=== PATIENT | female | born 1965 | race Caucasian/White ===

== ENCOUNTER 2017-04-07 14:11 | Outpatient (CLI) | payer OTHER | END 2017-04-07 23:59 | disposition home or self-care (01) | LOC: RAD 14:11 | PROVIDERS: ATTEND Registered Nurse | DX: M19.072 Primary osteoarthritis, left ankle and foot (principal); M77.32 Calcaneal spur, left foot; M77.31 Calcaneal spur, right foot; M21.42 Flat foot [pes planus] (acquired), left foot; M21.41 Flat foot [pes planus] (acquired), right foot | CPT/HCPCS: 73630 ==

== ENCOUNTER 2017-04-19 10:31 | Outpatient (CLI) | payer OTHER ==
[2017-04-19 11:51] LABS: ALANINE AMINOTRANSFERASE 27 U/L (12-78); ALBUMIN 3.4 G/DL (3.4-5.0); ALBUMIN/GLOBULIN RATIO 0.9 (1.1-1.5); ALKALINE PHOSPHATASE 53 IU/L (46-116); ANION GAP 8 (8-16); ASPARTATE AMINO TRANSFERASE 17 U/L (10-37); BILIRUBIN,TOTAL 0.4 MG/DL (0.1-1.0); BLOOD UREA NITROGEN 15 MG/DL (7-18); BUN/CREATININE RATIO 20.5 (6.6-38.0); CALCIUM 8.7 MG/DL (8.5-10.1); CHLORIDE 103 MMOL/L (99-107); CREATININE 0.73 MG/DL (0.40-0.90); GLUCOSE 92 MG/DL (70-104); POTASSIUM 3.7 MMOL/L (3.5-5.1); SODIUM 139 MMOL/L (135-145); TOTAL CARBON DIOXIDE 27.8 MMOL/L (24-32); eGFR 85 ML/MIN
== END 2017-04-19 23:59 | disposition home or self-care (01) ==
LOC: LAB 10:31
PROVIDERS: ATTEND Physician Assistant
DX: E03.8 Other specified hypothyroidism (principal); E88.09 Other disorders of plasma-protein metabolism, not elsewhere classified
CPT/HCPCS: 36415; 80053; 84439; 84443; 84481

== ENCOUNTER 2017-10-20 10:40 | Outpatient (CLI) | payer OTHER | END 2017-10-20 23:59 | disposition home or self-care (01) | LOC: RAD 10:40 | PROVIDERS: ATTEND Podiatrist Foot & Ankle Surgery | DX: M21.41 Flat foot [pes planus] (acquired), right foot (principal); R60.0 Localized edema; M79.671 Pain in right foot; Z90.89 Acquired absence of other organs; Z87.891 Personal history of nicotine dependence; Z88.1 Allergy status to other antibiotic agents | CPT/HCPCS: 73718 ==

== ENCOUNTER 2017-10-27 08:20 | Emergency (ER) | payer OTHER ==
[~2017-10-27] VITALS: Ht 162.6 cm; Wt 105.8 kg
[2017-10-27 08:44] VITALS: BP 142/83
[2017-10-27] MEDS ORDERED: ondansetron 4mg rapidly disintigrating tab PO ONE (08:50)
[2017-10-27] MEDS ORDERED: ibuprofen tablet 400 MG TABLET PO ONE (08:50)
[2017-10-27] MEDS ORDERED: acetaminophen 325mg tablet PO ONE (08:50)
== END 2017-10-27 09:56 | disposition home or self-care (01) ==
LOC: ER 08:20
DX: H53.8 Other visual disturbances (principal); R51 Headache; G89.29 Other chronic pain; Z98.890 Other specified postprocedural states; Z90.89 Acquired absence of other organs; Z88.1 Allergy status to other antibiotic agents
CPT/HCPCS: 99284

== ENCOUNTER 2018-04-03 06:51 | Outpatient (CLI) | payer OTHER ==
[2018-04-03 07:31] LABS: BASOPHILS % (AUTO) 0.6 % (0-1); EOSINOPHILS # (AUTO) 0.3 X10'3 (0-0.9); HEMOGLOBIN 13.6 g/dl (12.0-16.0); LYMPHOCYTES # (AUTO) 2.5 X10'3 (1.1-4.8); LYMPHOCYTES % (AUTO) 38.3 % (21-51); MEAN CORPUSCULAR HEMOGLOBIN 30.9 PG (27.0-31.0); MEAN PLATELET VOLUME 7.4 FL (7.4-10.4); MONOCYTES # (AUTO) 0.7 X10'3 (0-0.9); MONOCYTES % (AUTO) 10.4 % (2-12); NEUTROPHILS # (AUTO) 3.1 X10'3 (1.8-7.7); NEUTROPHILS % (AUTO) 46.7 % (42-75); PLATELET COUNT 381 X10'3 (140-440); RED BLOOD COUNT 4.39 X10'6 (4.20-5.60); RED CELL DISTRIBUTION WIDTH 13.5 % (11.5-14.5); WHITE BLOOD COUNT 6.6 X10'3 (4.5-11.0)
[2018-04-03 08:02] LABS: ALANINE AMINOTRANSFERASE 42 U/L (12-78); ALBUMIN 3.1 G/DL (3.4-5.0); ALBUMIN/GLOBULIN RATIO 0.8 (1.1-1.5); ALKALINE PHOSPHATASE 46 IU/L (46-116); ANION GAP 7 (8-16); ASPARTATE AMINO TRANSFERASE 24 U/L (10-37); BILIRUBIN,TOTAL 0.5 MG/DL (0.1-1.0); BLOOD UREA NITROGEN 14 MG/DL (7-18); BUN/CREATININE RATIO 22.6 (6.6-38.0); CALCIUM 8.3 MG/DL (8.5-10.1); CHLORIDE 106 MMOL/L (99-107); CHOL/HDL RATIO 3.4 (0.00-4.99); CHOLESTEROL 165 MG/DL (0-200); CREATININE 0.62 MG/DL (0.40-0.90); GLUCOSE 101 MG/DL (70-104); HDL CHOLESTEROL 49 MG/DL (35-60); LDL CHOLESTEROL 110 MG/DL (50-100); POTASSIUM 4.1 MMOL/L (3.5-5.1); SODIUM 141 MMOL/L (135-145); TOTAL CARBON DIOXIDE 27.7 MMOL/L (24-32); TRIGLYCERIDES 38 MG/DL (20-135); eGFR > 90 ML/MIN
== END 2018-04-03 23:59 | disposition home or self-care (01) ==
LOC: LAB 06:51
PROVIDERS: ATTEND Physician Assistant
DX: Z00.00 Encounter for general adult medical examination without abnormal findings (principal); E03.8 Other specified hypothyroidism; Z87.891 Personal history of nicotine dependence; Z88.1 Allergy status to other antibiotic agents
CPT/HCPCS: 36415; 80053; 80061; 84439; 84443; 84481; 85025

== ENCOUNTER 2018-06-05 10:03 | Day surgery (SDC) | payer OTHER ==
[~2018-06-05] VITALS: Ht 162.6 cm; Wt 108.2 kg
[2018-06-05 10:17] VITALS: BP 123/87
[2018-06-05] MEDS ORDERED: fentaNYL/PF 50MCG/1 ML 2ML syringe ONE (10:18)
[2018-06-05] MEDS ORDERED: MIDAZolam 5mg/5ml vial ONE (10:19)
[2018-06-05] MEDS ORDERED: MOBIC PO (10:30)
[2018-06-05] MEDS ORDERED: LEVO125T PO (10:30)
[2018-06-05] MEDS ORDERED: VITAMIN D PO (10:31)
[2018-06-05] MEDS ORDERED: ALLERGY PO (10:32)
[2018-06-05 11:00] VITALS: BP 102/67
[2018-06-05 11:10] VITALS: BP 98/48
[2018-06-05 11:20] VITALS: BP 119/86
[2018-06-05 11:30] VITALS: BP 125/86
== END 2018-06-05 11:40 | disposition home or self-care (01) ==
LOC: GI LAB 10:03
PROVIDERS: ATTEND Internal Medicine Gastroenterology
DX: Z12.11 Encounter for screening for malignant neoplasm of colon (principal); K63.5 Polyp of colon; K64.8 Other hemorrhoids
CPT/HCPCS: 45385; 99152; 99153; J2250; J3010; J7030; A4620

== ENCOUNTER 2018-07-04 12:21 | Outpatient (CLI) | payer OTHER ==
[~2018-07-04 12:21] MED LIST: ALLERGY PO; LEVO125T PO; MOBIC PO; VITAMIN D PO
== END 2018-07-04 23:59 | disposition home or self-care (01) ==
LOC: 64 CT 12:21
PROVIDERS: ATTEND Orthopaedic Surgery
DX: M21.41 Flat foot [pes planus] (acquired), right foot (principal); M19.071 Primary osteoarthritis, right ankle and foot; M77.31 Calcaneal spur, right foot
CPT/HCPCS: 73700